=== PATIENT | female | born 1980 | race Caucasian/White ===

== ENCOUNTER 2018-02-11 19:19 | Emergency (ER) | payer OTHER ==
[~2018-02-11] VITALS: Ht 165.1 cm; Wt 93.1 kg
[2018-02-11 19:35] VITALS: BP 141/75
--- NOTE | 2018-02-11 19:42 | NUR ---
Patient ambulated to chair A. RN evaluating patient.
--- NOTE | 2018-02-11 20:19 | NUR ---
Dr. Irwin evaluating patient.
[2018-02-11] MEDS ORDERED: diphenhydrAMINE 50 MG/ML VIAL IM ONE (20:30)
[2018-02-11] MEDS ORDERED: PROCHLORPERAZINE 10 MG/2 ML VIAL IM ONE (20:30)
--- NOTE | 2018-02-11 20:46 | NUR ---
Patient taken to CT scan via wheelchair by tech.
--- NOTE | 2018-02-11 20:54 | NUR ---
Patient returned from CT scan. RN re-evaluating patient.
[2018-02-11 20:55] LABS: BASOPHILS % (AUTO) 0.5 % (0.0-2.0); EOSINOPHILS # (AUTO) 0.1 K/uL (0-0.4); EOSINOPHILS % (AUTO) 1.4 % (0.0-4.0); HEMATOCRIT 34.3 % (36-48); HEMOGLOBIN 10.7 g/dL (12.0-16.0); LYMPHOCYTES % (AUTO) 23.4 % (20.5-51.1); MEAN CORPUSCULAR HEMOGLOBIN 24 pg (27-31); MEAN CORPUSCULAR HGB CONC 31 g/dL (33-37); MEAN CORPUSCULAR VOLUME 77.1 fL (80-94); MONOCYTES # (AUTO) 0.6 K/uL (0.8-1.0); MONOCYTES % (AUTO) 6.8 % (1.7-9.3); NEUTROPHILS # (AUTO) 5.7 K/uL (1.8-7.7); NEUTROPHILS % (AUTO) 67.9 % (42.2-75.2); PLATELET COUNT (AUTO) 341 K/uL (140-450); RED BLOOD CELL COUNT(AUTO) 4.45 MIL/uL (4.20-5.40); RED CELL DISTRIBUTION WIDTH 15.5 % (11.6-13.7); WHITE BLOOD COUNT (AUTO) 8.4 K/uL (4.8-10.8)
[2018-02-11 20:59] LABS: BILIRUBIN,URINE NEGATIVE (NEGATIVE); BLOOD, URINE 3+ (NEGATIVE); COLOR,URINE YELLOW (YELLOW); LEUKOCYTE ESTERASE ,URINE NEGATIVE (NEGATIVE); NITRITE, URINE NEGATIVE (NEGATIVE); PH,URINE 5.5 (5.0-9.0); UGLUCOSE NEGATIVE (NEGATIVE)
[2018-02-11 21:11] LABS: APPEARANCE,URINE HAZY (CLEAR); RBC,URINE 0-5 (RARE) /HPF (0-5); WBC,URINE 0-5 (RARE) /HPF (0-5)
[2018-02-11 21:19] LABS: ANION GAP 12.4 (8-16); CARBON DIOXIDE 28.3 mmol/L (21-32); CREATININE 0.8 mg/dL (0.6-1.3); POTASSIUM 3.7 mmol/L (3.5-5.1)
[2018-02-11 21:34] LABS: ALBUMIN 4.1 g/dL (3.4-5.0); THYROID STIMULATING HORMONE 1.26 uIU/mL (0.34-3.74); TOTAL BILIRUBIN 1.1 mg/dL (0.0-1.0)
[2018-02-11 22:10] VITALS: BP 131/67
--- NOTE | 2018-02-11 22:10 | NUR ---
Patient discharged with v/s stable. Written and verbal after care instructions given and explained. Patient alert, oriented and verbalized understanding of instructions. Ambulatory with steady gait. All questions addressed prior to discharge. ID band removed. Patient advised to follow up with PMD. Rx of Reglan and Ibuprofen given. Patient educated on indication of medication including possible reaction and side effects. Opportunity to ask questions provided and answered.
== END 2018-02-11 22:10 | disposition home or self-care (01) ==
LOC: MED 19:19
DX: R51 Headache (principal); D64.9 Anemia, unspecified
CPT/HCPCS: 36415; 70450; 80053; 81001; 81025; 84443; 85025; 96372; 99285; J0780; J1200